=== PATIENT | male | born 1945 | race Caucasian/White ===

== ENCOUNTER → 2022-08-13 | Outpatient (CLI) | payer OTHER ==
--- NOTE | 2022-08-13 11:38 | CT ---
EXAMINATION TYPE: CT chest wo con DATE OF EXAM: 08/13/2022 COMPARISON: None HISTORY: Dyspnea CT DLP: 505.70 mGycm, Automated exposure control for dose reduction was used. CONTRAST: Performed injected with 0 mL of Isovue 300. TECHNIQUE: Axial images were obtained at 5 mm thick sections. Reconstructed images are reviewed on [employer] computer in the coronal plane. FINDINGS: Portion of the thyroid visualized is normal. There is a punctate peripheral based nodule in the posterior right apex. Series 4 image 11. There is a 0.4 cm nodule within the periphery of the right mid lung. Series 4 image 29. There is a punctate density within the posterior right lung. Series 4 image 34. No enlarged mediastinal or hilar adenopathy is evident. Small superior mediastinal lymph nodes are p resent. A couple small pretracheal lymph nodes are present. The ascending aorta diameter at the leve l of the main pulmonary artery is 4.0 cm. The main pulmonary artery diameter at the bifurcation is 2 .6 cm. Coronary artery calcification is present. Limited CT sections are obtained through the upper abdomen. Abdomen is essentially unremarkable. IMPRESSIONS: 1. Few tiny nodules within the right lung. Follow-up exam in 6 months is recommended. These should be confirmed as stable over the course of 2 years. 2. Ascending thoracic aortic aneurysm are 4.0 cm.
== END | disposition home or self-care (01) ==
LOC: RADCTMAIN 10:14
DX: R06.09 Other forms of dyspnea (principal)
CPT/HCPCS: 71250

== ENCOUNTER → 2023-10-26 | Outpatient (CLI) | payer OTHER ==
[2023-10-26 14:01] LABS: African American GFR (CKD) >90 (>60 ml/min/1.73 sqM); Blood Urea Nitrogen 20 mg/dL (9-20); Non-African American GFR(CKD) 88 (>60 ml/min/1.73 sqM)
--- NOTE | 2023-10-26 15:44 | CT ---
EXAMINATION TYPE: CT chest w con DATE OF EXAM: 10/26/2023 COMPARISON: 12/23/2022 HISTORY: f/u nodules CT DLP: 609 mGycm, Automated exposure control for dose reduction was used. CONTRAST: Performed injected with 100 mL of Isovue 300. TECHNIQUE: Axial images were obtained at 5 mm thick sections. Reconstructed images are reviewed on [employer] computer in the coronal plane. FINDINGS: Portion of the thyroid visualized is normal. There are scattered peripheral punctate nodules in the upper lung [place]. These appear stable. No enlarged mediastinal or hilar adenopathy is evident. The ascending aorta diameter at the level o f the main pulmonary artery is 3.7 cm. The main pulmonary artery diameter at the bifurcation is 2.[address] sections are obtained through the upper abdomen. Abdomen is essentially unremarkable. IMPRESSION: 1. Stable CT chest. Follow-up CT chest can be performed in 12 months per Fleischner criteria.
== END | disposition home or self-care (01) ==
LOC: RADCTMAIN 13:19
PROVIDERS: ATTEND Internal Medicine
DX: R91.8 Other nonspecific abnormal finding of lung field (principal)
CPT/HCPCS: 82565; 84520; 71260; 36415; Q9967

== ENCOUNTER → 2023-12-30 | Outpatient (CLI) | payer OTHER ==
--- NOTE | 2023-12-30 16:45 | P.SLEEP ---
History of Present Illness DATE: 12/30/2023 CONSULTATION/NEW PATIENT EVALUATION HISTORY OF PRESENT ILLNESS/SLEEP-WAKE EVALUATION: 78-year-old gentleman had been evaluated had been evaluated in the sleep center for obstructive sleep apnea hypopnea syndrome. Patient has history of obstructive sleep apnea for 23 years. He is using CPAP equipment every night for the whole night. I checked CPAP unit. CPAP pressure 13 cm of water, usage is 100% of nights, average 6.5 hours per night. Leak is 14 L/m which is acceptable. Apnea-hypopnea index is 1.9 which is normal SLEEP SCHEDULE: Usually sleep schedule on 3 AM until 811 AM. FALLING ASLEEP: Patient does have difficulties with falling asleep. DURING SLEEP: Patient snores even while using his CPAP equipment and his awakenings from sleep up to 3 times. No episodes of nocturia after the patient was started on Flomax. No history of hypnogogical hallucinations, sleep paralysis, or cataplexy. DURING THE DAY/WAKE STATE: In the morning patient wake up tired. [place] sleepiness scale is in extremely high range of 20. Patient may take several naps usually afternoon. Positive history of vivid dreams during naps. PAST MEDICAL HISTORY: Coronary disease, BPH, hyperlipidemia, diabetes mellitus. PAST SURGICAL HISTORY: CABG, cholecystectomy. MEDICATIONS: Metformin, metoprolol, cetirizine, Flomax, atorvastatin, Humira. SOCIAL HISTORY: Negative for smoking the present time, alcohol consumption occasional. FAMILY HISTORY:Stroke, heart problems, diabetes]. REVIEW OF SYSTEMS:Snoring, awakenings from sleep. No fevers. No double vision. No recent chest pain. No shortness of breath. No abdominal pain. No bleeding episodes. No blood in urine. No seizure episodes. PHYSICAL EXAMINATION: GENERAL: A pleasant patient without any distress. VITAL SIGNS: BP 112/71 , HR 62 , RR 16 , weight 234.6 pounds, height 6 foot 0 inches, body mass index 31.7 . HEENT: PERRLA, EOMI. Evaluation of oropharynx showed tongue protrudes midline, low position of soft palate Mallampati 4. NECK: Supple. No JVD. Thyroid is not palpable. 18 inches in circumference. LUNGS: Clear to percussion and to auscultation. Good air exchange. No wheezing or rhonchi. HEART: S1, S2 regular. No murmurs, gallops or rubs. ABDOMEN: Soft and nontender. Bowel sounds are present. No organomegaly appreciated. EXTREMITIES: No clubbing or cyanosis. PICKING SUPERVISOR: Awake, alert, and oriented x3. Cranial nerves 2 to 7 intact. There is no fasciculation or atrophy noted. No focal deficits observed. ASSESSMENT: 1. Obstructive sleep apnea-hypopnea syndrome for about 23 years. Patient continued to use his CPAP equipment every night for the whole night, has episodes of awakenings from sleep and snoring while using CPAP equipment. CPAP pressure is 13 cm of water. 2. Coronary artery disease, status post CABG. 3. Diabetes mellitus. 4. BPH. 5 hyperlipidemia. 6 . History of arthritis. 7. Status post cholecystectomy. PLAN: 1. I changed parameters in CPAP unit to AutoPAP with range of pressure 11-16 cm of water. 2. Patient will continue to use CPAP equipment every night for the whole night. 3. Preferable position during sleep on the side. 4. No driving if patient feels any sleepiness. Patient is aware of civil and criminal liability for unsafe driving. 5. Sleep hygiene with regular sleep time for at least 7.5-8 hours. 6. Watching weight. 7. Follow-up visit in 4 months, or earlier if patient has any problems. Thank you very much for referring this patient for consultation. Sincerely, Nish Kennedy MD, PhD, FAASM. Diplomat of [place] [employer], Sleep Medicine Board by [place] [employer] [place] [employer] Warehouse Delivery Driver of [facility] [place] Sleep Note - Sleep Note Sleep Note: Temperature: Pulse Rate: Respiratory Rate: Blood Pressure: SpO2: Height: Weight: BMI: Neck Circumference:
== END ==
LOC: 3 N SLEEP 15:36
PROVIDERS: ATTEND Internal Medicine
DX: G47.33 Obstructive sleep apnea (adult) (pediatric) (principal); I25.10 Atherosclerotic heart disease of native coronary artery without angina pectoris; E11.9 Type 2 diabetes mellitus without complications; N40.0 Benign prostatic hyperplasia without lower urinary tract symptoms; E78.5 Hyperlipidemia, unspecified; M19.90 Unspecified osteoarthritis, unspecified site; Z98.890 Other specified postprocedural states; Z90.49 Acquired absence of other specified parts of digestive tract; Z95.5 Presence of coronary angioplasty implant and graft; Z79.899 Other long term (current) drug therapy; Z79.84 Long term (current) use of oral hypoglycemic drugs; Z99.89 Dependence on other enabling machines and devices
CPT/HCPCS: 99211

== ENCOUNTER → 2024-04-28 | Outpatient (CLI) | payer OTHER ==
[2024-04-28 15:36] VITALS: BP 108/61; PULSE 68; RESP 16; TEMP 97.5
--- NOTE | 2024-04-28 16:00 | P.PROGSL ---
Subjective DATE: 04/28/2024 FOLLOW UP VISIT. Patient with obstructive sleep apnea hypopnea syndrome return to sleep center for follow-up visit. Information from previous visit have been reviewed. During previous visit I checked patient's CPAP unit. It showed great compliance and normal respiration on CPAP. I adjusted CPAP unit to optometric regimen with a range of the pressure 11 to 16 cm of water. Presently patient feels that his sleep is better with CPAP after adjustments. Patient is using PAP equipment every night for the whole night, getting PAP supplies in time. The patient does not have significant problems with the mask, PAP unit and humidification. Patient continued to have significant sleepiness during the day. [place] Sleepiness Scale is significantly high 17 and patient has episodes of sleepiness while driving. MEDICATIONS: Please see below During physical exam: GENERAL: A pleasant patient without any distress. VITAL SIGNS: Please see below, weight 237 pounds, BMI 32.1. HEENT: PERRLA, EOMI.low position of soft palate, Mallapati 4 . NECK: Supple. No JVD. LUNGS: Clear to percussion and to auscultation. Good air exchange. No wheezing or rhonchi. HEART: S1, S2 regular. ABDOMEN: Soft and nontender.[] EXTREMITIES: No clubbing or cyanosis. PIPE MACHINE OPERATOR: Awake, alert, and oriented x3. No focal deficit. Impressions: 1. Obstructive sleep apnea-hypopnea syndrome. Patient continues to use equipment every night for the whole night, but still has sleepiness during the day. 2. Sleepiness during the day with [place] Sleepiness Scale 17 dictate necessity to include narcolepsy and idiopathic hypersomnia and differential diagnosis. 3. Coronary artery disease, status post CABG. 4. Diabetes mellitus. 5. BPH. 6. Hyperlipidemia. 7. History of arthritis. 8. Status post cholecystectomy. Plan: 1. Continue using PAP equipment every night for the whole night. 2. Multiple sleep latency test for objective evaluation symptoms of excessive daytime sleepiness during the day for differential diagnosis for possible narcolepsy type II and idiopathic hypersomnia after PAP titration night. 3. PAP unit should stay lower then position of the head. 4. Advised patient to remove all remaining water from humidifier canister daily and make it dry after each usage. Refill canister with fresh distilled water before each usage. 5. Sleep hygiene with regular time in bed for at least 8 hours. 6. Precautions related to driving. No driving if feel any sleepiness. 7. I will maintain prescription for PAP supplies including mask, tube, filters. 8. Follow up visit in 6 months or earlier if patient has any problems. 9. Watching weight. 10. Following plan after reading PAP titration and MSLT Thank you very much for allowing me to participate in the management of your patient. Nish Kennedy MD, PhD, FAASM. Diplomat of [place] [employer], Sleep Medicine Board by [place] [employer] Space Operations Officer of [facility] [place] Objective - Vital Signs Vital Signs: Vital Signs Temp 97.5 F L 04/28/24 15:35 Pulse 68 04/28/24 15:35 Resp 16 04/28/24 15:35 BP 108/61 04/28/24 15:35 Pulse Ox 97 04/28/24 15:35 FiO2 Intake & Output 04/27/24 04/28/24 04/28/24 18:59 06:59 18:59 Weight 107.501 kg Home Medications: Home Medications Medication Instructions Recorded Confirmed Type Adalimumab [Humira(Cf) Pen] 40 mg IM DIRECTED 04/28/24 04/28/24 History Ascorbic Acid [Vitamin C] 1,000 mg PO DAILY 04/28/24 04/28/24 History Aspirin EC [Ecotrin Low Dose] 81 mg PO DAILY 04/28/24 04/28/24 History Atorvastatin [Lipitor] 40 mg PO DAILY 04/28/24 04/28/24 History Cetirizine HCl [Zyrtec] 10 mg PO DAILY 04/28/24 04/28/24 History Cholecalciferol [Vitamin D3 (125 5,000 capsule PO DAILY 04/28/24 04/28/24 History Mcg = 5000 Iu)] Garlic 1,000 mg PO DAILY 04/28/24 04/28/24 History Ibuprofen/Diphenhydramine HCl See Rx Instructions .ROUTE .COMPLEX 04/28/24 04/28/24 History [Advil Pm Liqui-Gels] Metoprolol Tartrate 25 mg PO BID 04/28/24 04/28/24 History Mv-Mn/Om3/Dha/Epa/Fish/Lut/Nathaniel See Rx Instructions .ROUTE .COMPLEX 04/28/24 04/28/24 History [Ocuvite Adult 50 Plus Softgel] Tamsulosin HCl [Flomax] 0.4 mg PO DAILY 04/28/24 04/28/24 History Zinc Gluconate [Zinc] 50 mg PO DAILY 04/28/24 04/28/24 History metFORMIN HCL [Glucophage] 500 mg PO BID 04/28/24 04/28/24 History
== END ==
LOC: 3 N SLEEP 15:13
PROVIDERS: ATTEND Internal Medicine
DX: G47.33 Obstructive sleep apnea (adult) (pediatric) (principal); I25.10 Atherosclerotic heart disease of native coronary artery without angina pectoris; E11.9 Type 2 diabetes mellitus without complications; N40.0 Benign prostatic hyperplasia without lower urinary tract symptoms; E78.5 Hyperlipidemia, unspecified; Z87.39 Personal history of other diseases of the musculoskeletal system and connective tissue; Z95.1 Presence of aortocoronary bypass graft; Z90.49 Acquired absence of other specified parts of digestive tract; Z99.89 Dependence on other enabling machines and devices; Z79.84 Long term (current) use of oral hypoglycemic drugs
CPT/HCPCS: 99212

== ENCOUNTER 2024-07-26 19:28 | Outpatient (CLI) | payer OTHER ==
[2024-07-27 10:52] LABS: Urine Alcohol Negative (Negative); Urine Barbiturate Negative (Negative); Urine Cocaine Negative (Negative); Urine Methadone Negative (Negative); Urine Opiates Negative (Negative); Urine Phencyclidine Negative (Negative)
--- NOTE | 2024-07-28 13:55 | P.PCN ---
Description of Procedure: CPAP titration 07/26/2024, multiple sleep latency test 07/27/2024 Titration with positive air pressure has been done for correction of respiratory abnormalities during sleep. DESCRIPTION OF PROCEDURE: The standard montage for clinical polysomnography included the electroencephalogram, the electrocardiogram, the mentalis surface elec tromyography and Lead II cardiography. The respiratory battery consisted of measurements of nasal /buccal air flow, pressure transducer measurements from the nose, thoracic and /or abdominal effort and intercostal surface electromyography. Video monitoring has been done to check for any parasomnia events. Nocturnal oxyhemoglobin saturations were obtained by finger oximetry. Step-jones titration with positive airway pressure was utilized to control respiratory events. Raw data of sleep recording has been reviewed and is adequate. RESULTS: Sleep efficiency was decreased to 73.9% %. Latency to sleep onset was prolonged to 84.0 minutes.]. Sleep architecture showed stage N1 was short 1.5%, Delta sleep was absent 0%, REM sleep was normal 25.8%. Heart rate was minimum 59 BPM, maximum 70 BPM, average 64 BPM. EMG showed 0 periodic limb movements per hour. PAP titration have been done with CPAP up to the pressure 13 cm H2O. On CPAP pressure 11 to 13 cm of water patient had normal respiration during the whole night with apnea hypopnea index only 0.2. Multiple sleep latency test have been done on the following day and consisted from 5 naps. Patient fell asleep on all naps. Mean sleep latency 8 minutes. One sleep onset REM sleep have been documented IMPRESSION: 1. Obstructive sleep apnea hypopnea syndrome on controle with PAP treatment on the pressure range 11 to 13 cm of water. 2. No significant periodic limb movements have been documented. 3. Multiple sleep latency test confirmed sleepiness with mean sleep latency 8 minutes and 1 sleep onset REM. Which may indicate diagnosis of narcolepsy versus idiopathic hypersomnia. Please see other impressions from consultation. PLAN: 1. The patient will continue treatment with positive air pressure equipment every night for the whole night. 2. Watching weight. 3. Sleep hygiene with regular time in bed for at least 8 hours. 4. No driving if feeling any sleepiness. 5. I will see the patient for follow up visit to explain the results of the test and recommendations. 6. We will consider to start patient on medications to prevent excessive daytime sleepiness. Thank you very much for allowing me to participate in the management of your patient. Sincerely, Nish Stefadu, MD, PhD, FAASM Diplomat of [place] [employer] Sleep Medicine Board of [place] [employer] Medicine Automatic Die Cutting Machine Operator of [facility] [place] cc: [facility]
== END 2024-07-27 13:00 | disposition home or self-care (01) ==
LOC: 3 N SLEEP 19:28
PROVIDERS: ATTEND Internal Medicine
DX: G47.33 Obstructive sleep apnea (adult) (pediatric) (principal); G47.52 REM sleep behavior disorder; G47.10 Hypersomnia, unspecified; G47.419 Narcolepsy without cataplexy; Z99.89 Dependence on other enabling machines and devices
CPT/HCPCS: 80306; 95805; 95811

== ENCOUNTER → 2024-07-28 | Outpatient (CLI) | payer OTHER ==
--- NOTE | 2024-07-28 14:55 | P.PROGSL ---
Subjective DATE: 07/28/2024 FOLLOW UP VISIT. Patient with obstructive sleep apnea hypopnea syndrome continue to feel some sleepiness while using CPAP return to sleep center for follow-up visit. Recently patient had CPAP titration with following multiple sleep latency test for objective fibrillation symptoms of excessive daytime sleepiness. I explained results of sleep studies to the patient and family in details. During the night on CPAP patient respiration was normal with a range of CPAP pressure from 11 to 13 cm of water. Total apnea hypopnea index for the whole night was only 0.2. Multiple sleep latency test on the following day confirmed sleepiness with mean sleep latency 8 minutes and 1 sleep onset REM. Patient is using PAP equipment every night for the whole night, getting PAP supplies in time. The patient does not have significant problems with the mask, PAP unit and humidification. [place] sleepiness scale is 9. I checked information from PAP unit. PAP unit pressure 11 to 16 cm of water, average 13 cm H2O. Usage is 100% for more then 4 hours, average 6.8 hours per night. Leak is 13 l/m, which is in acceptable range. Apnea Hypopnea Index is 1.0, which is normal. MEDICATIONS have been reviewed, please see below. During physical exam: GENERAL: A pleasant patient without any distress. VITAL SIGNS: Please see below, weight is 237 lbs. HEENT: PERRLA, EOMI.low position of soft palate, Mallapati 4 . NECK: Supple. No JVD. LUNGS: Clear to percussion and to auscultation. Good air exchange. No wheezing or rhonchi. HEART: S1, S2 regular. ABDOMEN: Soft and nontender.[] EXTREMITIES: No clubbing or cyanosis. MANAGER SALES TRAINING: Awake, alert, and oriented x3. No focal deficit. Impressions: 1. Obstructive sleep apnea-hypopnea syndrome. Patient demonstrated great compliance with treatment, benefiting from treatment. 2. Patient continued to feel sleepiness during the day. Multiple sleep latency test confirmed sleepiness. Mean sleep latency 8 minutes. 1 sleep onset REM. Have been documented. Which dictate to include narcolepsy and idiopathic hypersomnia in differential diagnosis. 3. Disease status post CABG. 4. Diabetes mellitus. 5. BPH. 6. Hyperlipidemia. 7. History of arthritis. 8. Status post cholecystectomy. Plan: 1. Continue using PAP equipment every night for the whole night. 2. Sleep hygiene with regular time in bed 7.5-8 hours 3. PAP unit should stay lower then position of the head. 4. Advised patient to remove all remaining water from humidifier canister daily and make it dry after each usage. Refill canister with fresh distilled water before each usage. 5. Watching weight. 6. Precautions related to driving. No driving if feel any sleepiness. 7. I will maintain prescription for PAP supplies including mask, tube, filters. 8. Will consider to start patient on treatment with armodafinil 150 mg once a day in the morning to prevent excessive daytime sleepiness after it will be pe rmitted by his mail processor. 9. Follow up visit in 6 months or earlier if patient has any problems. Thank you very much for allowing me to participate in the management of your patient. Nish Kennedy MD, PhD, FAASM. Diplomat of [place] [employer] Medicine, Sleep Medicine Board by [place] [employer] Hospice Clinical Marketer of [facility] [place] cc: Valente Blank DO Objective Home Medications: Home Medications Medication Instructions Recorded Confirmed Type Adalimumab [Humira(Cf) Pen] 40 mg IM DIRECTED 04/28/24 04/28/24 History Ascorbic Acid [Vitamin C] 1,000 mg PO DAILY 04/28/24 04/28/24 History Aspirin EC [Ecotrin Low Dose] 81 mg PO DAILY 04/28/24 04/28/24 History Atorvastatin [Lipitor] 40 mg PO DAILY 04/28/24 04/28/24 History Cetirizine HCl [Zyrtec] 10 mg PO DAILY 04/28/24 04/28/24 History Cholecalciferol [Vitamin D3 (125 5,000 capsule PO DAILY 04/28/24 04/28/24 History Mcg = 5000 Iu)] Garlic 1,000 mg PO DAILY 04/28/24 04/28/24 History Ibuprofen/Diphenhydramine HCl See Rx Instructions .ROUTE .COMPLEX 04/28/24 04/28/24 History [Advil Pm Liqui-Gels] Metoprolol Tartrate 25 mg PO BID 04/28/24 04/28/24 History Mv-Mn/Om3/Dha/Epa/Fish/Lut/Nathaniel See Rx Instructions .ROUTE .COMPLEX 04/28/24 04/28/24 History [Ocuvite Adult 50 Plus Softgel] Tamsulosin HCl [Flomax] 0.4 mg PO DAILY 04/28/24 04/28/24 History Zinc Gluconate [Zinc] 50 mg PO DAILY 04/28/24 04/28/24 History metFORMIN HCL [Glucophage] 500 mg PO BID 04/28/24 04/28/24 History
== END ==
LOC: 3 N SLEEP 13:52
PROVIDERS: ATTEND Internal Medicine
CPT/HCPCS: 99212